=== PATIENT | male | born 1945 | race Caucasian/White ===

== ENCOUNTER 2017-05-21 09:03 | Emergency (ER) | payer OTHER, BC ==
[2017-05-21 09:14] VITALS: BP 155/84; RESP 16; TEMP 98.6
--- NOTE | 2017-05-21 09:47 | EDPHY ---
H & P Time Seen by Provider: 05/21/17 09:16 HPI/ROS: CHIEF COMPLAINT: Cough, sore throat HISTORY OF PRESENT ILLNESS: 71-year-old male presents with cough and sore throat. Onset of URI symptoms 1 month ago, including dry cough and sore throat. He has been traveling for the last month and is unsure if the symptoms have persisted or have been intermittent. He presents today because the sore throat is worse and he continues to have a cough. No fever or chills. Tolerating oral fluids well. REVIEW OF SYSTEMS: Constitutional: No fever, no chills Eyes: No visual changes or drainage ENT: No ear pain Respiratory: no shortness of breath Cardiac: No chest pain Gastrointestinal: No nausea, no vomiting, no abdominal pain Genitourinary: No hematuria, no dysuria Musculoskeletal: No myalgias Skin: No rash Neurological: No headache, Psychiatric: No depression Past Medical/Surgical History: Hyperlipidemia Social History: Smoking Status: Never smoked Physical Exam: General Appearance: Alert, pleasant, nontoxic-appearing Eyes: Pupils equal and round, no conjunctival pallor or injection ENT, Mouth: Mucous membranes moist Neck: Normal inspection Respiratory: Lungs are clear to auscultation Cardiovascular: Regular rate and rhythm Gastrointestinal: Abdomen is soft and nontender Neurological: A&O, nonfocal, normal gait Skin: Warm and dry, no rash Extremities: Normal inspection Psychiatric: Mood and affect normal Constitutional: Initial Vital Signs Temperature (C) 37 C 05/21/17 09:12 Heart Rate 77 05/21/17 09:12 Respiratory Rate 16 05/21/17 09:12 Blood Pressure 155/84 H 05/21/17 09:12 O2 Sat (%) 92 05/21/17 09:12 O2 Delivery Mode Room Air Allergies/Adverse Reactions: unknown statin Allergy (Uncoded 05/21/17 09:11) Home Medications: Medication Instructions Recorded Azithromycin [Zithromax] 250 mg PO DAILY #6 tab 05/21/17 Prozac 10 MG (*) 05/21/17 traZODone 05/21/17 Medical Decision Making - Diagnostics Imaging Results: CXR: NAD ED Course/Re-evaluation: This is a well-appearing patient who presents with URI symptoms. Chest x-ray reveals no evidence of pneumonia. Antibiotics not indicated. I discussed with the patient and he would like a prescription for antibiotics in case he gets worse. I wrote a prescription for Zithromax. Differential Diagnosis: Differential diagnosis includes but is not limited to pneumonia, otitis media, peritonsillar abscess, retropharyngeal abscess, meningitis. Departure - Departure Disposition: Home, Routine, Self-Care Clinical Impression: Upper respiratory infection Qualifiers: URI type: unspecified viral URI Qualified Code(s): J06.9 - Acute upper respiratory infection, unspecified Condition: Good Instructions: Upper Respiratory Infection (ED) Additional Instructions: Call for influenza results later this afternoon. Consider taking the antibiotics if your symptoms worsen. Return for worsening symptoms or any concerns. Referrals: Harriett Sanchez MD [Primary Care Provider] - As per Instructions Prescriptions: Azithromycin [Zithromax] 250 mg PO DAILY #6 tab
[2017-05-21 10:25] VITALS: PULSE 72; O2SAT 93
== END 2017-05-21 10:25 | disposition home or self-care (01) ==
DX: J06.9 Acute upper respiratory infection, unspecified (principal)

== ENCOUNTER 2017-06-28 17:08 | Emergency (ER) | payer OTHER ==
[2017-06-28 17:52] VITALS: TEMP 97.9
[2017-06-28 19:07] VITALS: RESP 16
--- NOTE | 2017-06-28 20:26 | EDPHY ---
H & P Smoking Status: Never smoked Time Seen by Provider: 06/28/17 18:00 HPI/ROS: Chief complaint: Fall with right chest wall and right hip injury History of present illness: This is a 71-year-old male who presents to the emergency department for evaluation of a fall resulting in right chest and right hip injury. Patient fell yesterday, approximately 24 hr ago. He was hiking when he fell. Since then he has had pain in the listed regions. He has noted associated bruising. He denies other associated signs or symptoms including no report of trauma to or pain in the head, neck, back, the rest of the chest, abdomen, or the extremities. There was no loss of consciousness. No paresthesias, no weakness or paralysis, no bowel or bladder dysfunction. He is not on blood thinning medications. Review of systems: A 10 point review of systems was obtained and other than described above was negative (Lambert Menendez) Physical Exam: General Appearance: Alert, nontoxic Eyes: PERRLA ENT: No hemotympanum, no Chowdary sign, no raccoon eyes Respiratory: Lungs clear to auscultation bilaterally Cardiac: Regular rate and rhythm. Gastrointestinal: Bowel sounds normal. Abdomen is soft, nondistended, nontender. Neurological: Alert and oriented x4. Cranial nerves 2-12 grossly intact. Strength and sensation intact and symmetrical. Skin: Slight abrasion to the right side of the head. Contusion to the right hip. Musculoskeletal: The head is nontender. The spine is nontender, no crepitus, bony deformity or step-off. Tenderness to the right chest wall without crepitus or subcutaneous air. Pelvis stable to rocking motion. Tenderness over the right hip. Moving all extremities well. Ambulating without difficulty. (Lambert Menendez) Constitutional: Initial Vital Signs Temperature (C) 36.6 C 06/28/17 17:37 Heart Rate 78 06/28/17 17:37 Respiratory Rate 18 06/28/17 17:37 Blood Pressure 138/73 H 06/28/17 17:37 O2 Sat (%) 95 06/28/17 17:37 O2 Delivery Mode Room Air Allergies/Adverse Reactions: unknown statin Allergy (Uncoded 06/28/17 17:36) Home Medications: Medication Instructions Recorded Prozac 10 MG (*) 05/21/17 Hydrocodone/APAP 5/325 [[place] 1 tab PO Q6H #10 tab 06/28/17 5/325 (*)] MDM/Departure - [facility] Imaging: I viewed and interpreted images myself - [facility] ED Course/Re-evaluation: Patient seen under the supervision of my secondary supervising physician Dr. Sugey Kessler. Patient presents to the emergency department for an injury to the right side of his chest and right hip. This occurred yesterday. X-ray confirms a single rib fracture. Pain is well controlled. I have discussed pain management at home. He is also given incentive spirometry. Given this occurred 24 hours ago and he is doing well I do believe he is appropriate for outpatient management. Home care is discussed. Return precautions are given. The patient voiced understanding and agreement with plan. (Lambert Menendez) The patient was evaluated and managed by the Physician Ham Pumper. I discussed the patient's presentation and course with the midlevel provider with them and agree with the evaluation. My co-signature indicates that I have reviewed this chart and I agree with the findings and plan of care as documented. I am the secondary supervising physician. (Sugey Kessler) Differential Diagnosis: Included but not limited to contusion, sprain or strain, bony fracture, pneumo or hemothorax (Lambert Menendez) - Depart Disposition: Home, Routine, Self-Care Clinical Impression: Rib fracture Qualifiers: Encounter type: initial encounter Rib fracture type: single rib Fracture type: closed Laterality: right Qualified Code(s): S22.31XA - Fracture of one rib, right side, initial encounter for closed fracture Contusion Qualifiers: Encounter type: initial encounter Contusion area: thigh Laterality: right Qualified Code(s): S70.11XA - Contusion of right thigh, initial encounter Condition: Good Instructions: Rib Fracture (ED), Contusion in Adults (ED) Additional Instructions: Follow-up with her primary care doctor on Friday for recheck You have been prescribed [[place]] for pain. [[place]] contains Tylenol, do not take extra Tylenol/acetaminophen/Apap with it. It is sedating. If symptoms worsen or new symptoms develop return to the emergency room for recheck Prescriptions: Hydrocodone/APAP 5/325 [[place] 5/325 (*)] 1 tab PO Q6H #10 tab Referrals: Harriett Sanchez MD [Primary Care Provider] - As per Instructions
[2017-06-28 20:37] VITALS: BP 148/73; PULSE 64; O2SAT 94
== END 2017-06-28 20:38 | disposition home or self-care (01) ==
DX: S22.31XA Fracture of one rib, right side, initial encounter for closed fracture (principal); S70.11XA Contusion of right thigh, initial encounter; W18.39XA Other fall on same level, initial encounter; Y99.8 Other external cause status; Y93.01 Activity, walking, marching and hiking